=== PATIENT | female | born 1995 | race Two or more races ===

== ENCOUNTER 2017-03-31 09:50 | Emergency (ER) | payer BC ==
[~2017-03-31] VITALS: Ht 172.7 cm; Wt 63.0 kg
[2017-03-31] MEDS ORDERED: CEFTRIAXONE 250 MG ONE (11:43)
[2017-03-31] MEDS ORDERED: AZITHROMYCIN 500 MG TABLET ONE (11:43)
[2017-03-31] MEDS ORDERED: CEFTRIAXONE 250 MG IM ONE (12:00)
[2017-03-31] MEDS ORDERED: AZITHROMYCIN 500 MG TABLET PO ONE (12:00)
[2017-03-31 12:08] VITALS: BP 109/68
== END 2017-03-31 12:12 | disposition home or self-care (01) ==
LOC: ED 11:52
DX: A60.04 Herpesviral vulvovaginitis (principal)
CPT/HCPCS: 96372; 99283; J0696